=== PATIENT | female | born 1955 | race Caucasian/White ===

== ENCOUNTER 2018-10-17 08:20 | Outpatient (CLI) | payer BC ==
--- NOTE | 2018-10-17 10:03 | CT ---
CT of the abdomen and pelvis with and without IV contrast CT cystogram INDICATION: History of prior bladder surgery with concern for possible cutaneous vesicular fistula. TECHNIQUE: Noncontrast CT of the abdomen and pelvis was performed. Postcontrast images were obtained in the nephrographic phase and delayed phase. Axial and coronal reformatted images were constructed from the raw data. 30 minute delayed phase images were obtained through the pelvis for a supine and p lory CT cystogram. Comparisons are made with IVP tomogram images performed concurrently. FINDINGS: ABDOMEN: Liver: There are small calcified granuloma within the liver.. Pancreas: Normal. Gallbladder: Normal by CT. Adrenal glands: Normal. Kidneys: There is some mild renal scarring involving the superior pole of the left kidney. No solid r enal lesion is evident. No hydronephrosis is evident. No grossly abnormal enhancing urothelial lesion is identified.. Spleen: Normal. Retroperitoneum: There are mild vascular calcifications involving the abdominal aorta. No lymphadenop athy is demonstrated. Pelvis: Bowel: There is a small retained medicinal tablet within the region of the cecum. The bowel is of nor mal caliber. Renal collecting system and bladder: There is no evidence to suggest presence of a cutaneous vesicula r fistula. There is scarring in the suprapubic, anterior abdominal wall likely related to prior incision site. This scarring does contact the bladder dome but without evidence of contrast extravasa tion to suggest presence of a fistula. No intraluminal filling defect is seen within the bladder. Reproductive structures: There is a 1.8 cm cyst within the right adnexa. Rectum and perirectal soft tissues: Normal. Osseous structures: No acute osseous abnormality is evident. There is scattered degenerative and oste oarthritic change present. IMPRESSION: 1. 1. Mild scarring involving the superior pole of the left kidney likely reflect sequela of prior traum a or infection. 2. No solid renal lesion or gross urothelial lesion identified. No renal or ureteral calculus is iden tified. 3. No evidence to suggest presence of a cutaneous vesicular fistula. There is scarring involving the anterior superior bladder dome and suprapubic abdominal wall likely related to a prior surgical change in this region. No intraluminal filling defect is seen within the bladder. 4. 1.8 cm simple cyst within the right adnexa is likely related to a serous inclusion cyst.
--- NOTE | 2018-10-17 10:17 | RAD ---
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 The prachi wel gas pattern is unobstructed. No suspicious calcification is seen overlying the renal collecting systems. There are small phleboliths within the lower left hemipelvis. There are calcified granuloma within the liver and spleen. Subsequent postcontrast images demonstrate bilateral symmetric nephrograms and bilateral symmetric excretion. No focal filling defect is seen within the segmentally opacified ureters. Partially opacified bladder demonstrates no intraluminal filling defect. IMPRESSION: Normal IVP evaluation Transcribed Date/Time: 10/17/2018 10:56 AM
[2018-10-17] MEDS ORDERED: Iopamidol 370 76% 100 ML VIAL ONE (13:00)
== END 2018-10-17 08:21 | disposition home or self-care (01) ==
LOC: CT 08:20
PROVIDERS: ATTEND Urology
DX: T81.31XD Disruption of external operation (surgical) wound, not elsewhere classified, subsequent encounter (principal); N39.0 Urinary tract infection, site not specified; N28.89 Other specified disorders of kidney and ureter; N83.8 Other noninflammatory disorders of ovary, fallopian tube and broad ligament; Z87.448 Personal history of other diseases of urinary system
CPT/HCPCS: 74178; 74410; 82565; Q9967

== ENCOUNTER 2019-01-29 07:18 | Outpatient (CLI) | payer BC ==
--- NOTE | 2019-01-29 09:16 | RAD ---
VOIDING CYSTOURETHROGRAM UNDER FLUOROSCOPY: CLINICAL HISTORY: Urinary tract infection. Remote history of vesicoureteral reflux is reported by the patient PROCEDURE: Informed consent was obtained and the patient was escorted to the procedural suite and the urinary bl adder was catheterized. Priming Machine Operator imaging does reveal a large volume of retained fecal material throughout the colon consistent with constipation. Low volume image of the urinary bladder does not reveal a significant filling defect. There is adequa te distention of the urinary bladder with 425 mL of radiopaque contrast. No vesicoureteral reflux is demonstrated. The patient is not able to void during imaging and therefore the urethra is not eval uated on this exam. Patient did void and returned to the imaging table for follow-up imaging which did not reveal evidence of vesicoureteral reflux, status post voiding. There is a mild to moderate po st void residua demonstrated. IMPRESSION: 1. No vesicoureteral reflux within limitations. 2. Mild to moderate post void residua of the urinary bladder. 3. Large volume retained fecal material throughout the colon. Transcribed Date/Time: 01/29/2019 9:31 AM
[2019-01-29] MEDS ORDERED: ISOVUE-370 76%-LOCM 1 ML ONE (10:42)
== END 2019-01-29 07:19 | disposition home or self-care (01) ==
LOC: RAD 07:18
PROVIDERS: ATTEND Urology
DX: N39.0 Urinary tract infection, site not specified (principal); N13.70 Vesicoureteral-reflux, unspecified; K59.00 Constipation, unspecified
CPT/HCPCS: 51600; 74455; Q9966

== ENCOUNTER 2020-05-22 06:28 | Outpatient (CLI) | payer BC ==
[2020-05-22 22:36] LABS: SARS-CoV-2 MS2 Positive; SARS-CoV-2 N Gene Negative; SARS-CoV-2 S Gene Negative; SARS-CoV-2 by NAA Not Detected (NotDetected); SARS-CoV-2 orf1ab Negative
== END 2020-05-22 06:29 | disposition home or self-care (01) ==
LOC: LABBT 06:28
PROVIDERS: ATTEND Surgery
DX: Z01.812 Encounter for preprocedural laboratory examination (principal); Z20.828 Contact with and (suspected) exposure to other viral communicable diseases; T14.8XXA Other injury of unspecified body region, initial encounter
CPT/HCPCS: 87635; U0003

== ENCOUNTER 2020-05-27 07:13 | Day surgery (SDC) | payer BC ==
[2020-05-26 11:03] VITALS: BMI 31.3
[2020-05-27] MEDS ORDERED: Lidocaine 1% w/Epinephrine 1:100K 20 ML VIAL ONE (08:11)
[2020-05-27] MEDS ORDERED: Bupivacaine PF 0.5% 30 ML VIAL ONE (08:11)
[2020-05-27] MEDS ORDERED: Levofloxacin 500 mg/D5W 100 ml Premix Bag ONE (08:54)
[2020-05-27] MEDS ORDERED: Fentanyl 100 MCG/2 ML VIAL ONE (09:09)
--- NOTE | 2020-05-27 10:05 | OP ---
DATE OF PROCEDURE: 05/27/2020 PREOPERATIVE DIAGNOSIS: Chronic open wound of abdomen. POSTOPERATIVE DIAGNOSIS: Chronic open wound of abdomen. PROCEDURE PERFORMED: Excision of chronic open wound of abdomen, 2 cm in diameter. ANESTHESIA: General. ESTIMATED BLOOD LOSS: Minimal. COMPLICATIONS: None. SPECIMENS: Chronic open wound. TECHNIQUE: The patient was taken to the operating room, laid supine on the operating room table. After general anesthetic was obtained, the abdomen was prepped and draped in a sterile fashion. An elliptical incision was used to ellipse out the chronic open wound to the lower abdomen. The dissection was taken all the way down to the muscle. The muscle was not injured. There was no obvious infection at the level of the fascia. The wound was sent to Path for final diagnosis. The wound was irrigated and closed using 3-0 Vicryl, 4-0 Monocryl, and Dermabond. The patient was en route to Recovery in stable condition. All instrument counts, needle counts, and lap counts were correct. Job ID: [id number]
[2020-05-27] MEDS ORDERED: Ketorolac Tromethamine 30 MG/ML VIAL ONE (10:26)
[2020-05-27] MEDS ORDERED: Lidocaine 1% PF 5 ML VIAL ONE (10:26)
[2020-05-27] MEDS ORDERED: Dexamethasone 20 MG/5 ML VIAL ONE (10:26)
[2020-05-27] MEDS ORDERED: PROPOFOL 200 MG/20 ML VIAL ONE (10:26)
[2020-05-27] MEDS ORDERED: Ondansetron PF 4 MG/2 ML Vial ONE (10:26)
== END 2020-05-27 11:15 | disposition home or self-care (01) ==
LOC: CANSCHSDC → SDC 07:13
PROVIDERS: ATTEND Surgery
PROC: 0JB80ZZ Excision of Abdomen Subcutaneous Tissue and Fascia, Open Approach (ICD-10-PCS; principal; 2020-05-27)
DX: S31.109A Unspecified open wound of abdominal wall, unspecified quadrant without penetration into peritoneal cavity, initial encounter (principal); L08.89 Other specified local infections of the skin and subcutaneous tissue; Z88.0 Allergy status to penicillin
CPT/HCPCS: 88305; J1100; J1885; J1956; J2405; J2704; J3010; S0020

== ENCOUNTER 2025-01-10 10:04 | Outpatient (CLI) | payer BC, MEDICARE | END 2025-01-10 10:05 | disposition home or self-care (01) | LOC: BICMAMMO 10:04 | PROVIDERS: ATTEND Student in an Organized Health Care Education/Training Program | DX: Z12.31 Encounter for screening mammogram for malignant neoplasm of breast (principal); Z78.0 Asymptomatic menopausal state; Z80.3 Family history of malignant neoplasm of breast; M85.88 Other specified disorders of bone density and structure, other site | CPT/HCPCS: 77063; 77067; 77080 ==